=== PATIENT | male | born 1950 | race Asian ===

== ENCOUNTER → 2017-07-03 | Outpatient (CLI) | payer BC, MEDICARE, OTHER | END | disposition home or self-care (01) | LOC: CLISVCS 10:46 | PROVIDERS: ATTEND Family Medicine | DX: J98.6 Disorders of diaphragm (principal) | CPT/HCPCS: 71020 ==

== ENCOUNTER 2019-12-20 19:41 | Emergency (ER) | payer BC, MEDICARE, OTHER ==
[~2019-12-20] VITALS: Ht 167.6 cm; Wt 74.1 kg
[2019-12-20 19:46] VITALS: BP 150/91
[2019-12-20] MEDS ORDERED: FLUORESCEIN OPHTHALMIC 1 MG STRIP ONE (19:58)
[2019-12-20] MEDS ORDERED: EYE WASH SOLUTION 120ML ONE (20:03)
--- NOTE | 2019-12-20 20:08 | NUR ---
PT CAME IN CO OF LEFT EYE PAIN. FOUND A OBJECT UNDER EYELID. WASHED OUT.
[2019-12-20] MEDS ORDERED: DIPH,PERTUSS(ACELL),TET VAC/PF 0.5 ML IM-VACC ONE ×2 (21:00→21:21)
== END 2019-12-20 21:29 | disposition home or self-care (01) ==
LOC: ED 21:12
DX: T15.02XA Foreign body in cornea, left eye, initial encounter (principal); X58.XXXA Exposure to other specified factors, initial encounter; Y93.89 Activity, other specified; Y92.89 Other specified places as the place of occurrence of the external cause; Y99.8 Other external cause status
CPT/HCPCS: 65220; 90471; 90715; 99284